=== PATIENT | female | born 1960 | race Caucasian/White ===

== ENCOUNTER 2019-12-10 18:04 | Inpatient (IN) | payer SELFPAY ==
[~2019-12-10] VITALS: Ht 152.4 cm; Wt 56.4 kg
[2019-12-10 19:21] LABS: BASOPHILS % (AUTO) 1.3 % (0.0-2.0); EOSINOPHILS % (AUTO) 0.9 % (1.0-6.0); HEMOGLOBIN 14.4 g/dL (12.0-16.0); LYMPHOCYTES # (AUTO) 1.9 K/uL (1.0-4.8); LYMPHOCYTES % (AUTO) 34.3 % (22.0-44.0); MEAN CORPUSCULAR HEMOGLOBIN 29.7 pg (26.0-34.0); MEAN CORPUSCULAR HGB CONC 32.6 G/dL (31.0-37.0); MEAN CORPUSCULAR VOLUME 91 fL (80-100); MONOCYTES # (AUTO) 0.4 K/uL (0.1-1.0); MONOCYTES % (AUTO) 7.5 % (2.0-9.0); PLATELET COUNT (AUTO) 374 K/uL (150-450); RED BLOOD CELL COUNT(AUTO) 4.83 MIL/uL (4.00-5.20); RED CELL DISTRIBUTION WIDTH 14.1 % (11.5-14.5)
[2019-12-10 19:36] LABS: ANION GAP 13 mmol/L (8-16); CALCIUM, TOTAL 8.7 mg/dL (8.8-10.5); CARBON DIOXIDE 25 mmol/L (22-29); CHLORIDE 110 mmol/L (98-107); CREATININE 0.44 mg/dL (0.60-1.30); GLOMERULAR FILTR. RATE CALC > 60 mL/min (>60); GLUCOSE,RANDOM 85 mg/dL (70-110); POTASSIUM 4.1 mmol/L (3.5-5.1); SODIUM SERUM 148 mmol/L (136-145); UREA NITROGEN, BLOOD 9 mg/dL (7-18)
[2019-12-10 19:42] LABS: ALANINE AMINOTRANSFERASE 21 U/L (12-78); ALBUMIN 3.5 g/dL (3.4-5.0); ALKALINE PHOSPHATASE 102 U/L (46-116); ASPARTATE AMINOTRANSFERASE 14 U/L (15-37); BILIRUBIN,TOTAL 0.2 mg/dL (0.1-1.0); TOTAL PROTEIN, SERUM 7.2 g/dL (6.4-8.2)
[2019-12-10] MEDS ORDERED: ZOLPIDEM TARTRATE 10 MG TABLET PO PRN (23:30)
[2019-12-10] MEDS ORDERED: HALOPERIDOL 5 MG TABLET PO PRN (23:30)
[2019-12-11 01:45] VITALS: BP 135/70
[2019-12-11] MEDS: LORazepam 2 MG TABLET PO PRN (02:07)
[2019-12-11 08:21] VITALS: BP 117/78
[2019-12-11 09:01] LABS: CHOL/HDL RATIO 1.9 (3.9-5.7)
[2019-12-11] MEDS ORDERED: LOPERAMIDE HCL 2 MG CAPSULE PO PRN (10:45)
[2019-12-11] MEDS ORDERED: DOCUSATE SODIUM 100 MG CAPSULE PO PRN (10:45)
[2019-12-11] MEDS ORDERED: CloNIDine HCL 0.1 MG TABLET PO PRN (10:45)
[2019-12-11] MEDS ORDERED: MAGNESIUM HYDROXIDE SUSPENSION 30 ML UDCUP PO PRN (10:45)
[2019-12-11] MEDS ORDERED: GuaiFENesin/D-METHORPHAN [SUGAR-FREE] 200-20MG/10 ML SYRUP UDCUP PO PRN (10:45)
[2019-12-11] MEDS ORDERED: MAG HYDROX/AL HYDROX/SIMETH ES 30 ML SUSPENSION UDCUP PO PRN (10:45)
[2019-12-11] MEDS ORDERED: ONDANSETRON HCL 4 MG TABLET PO PRN (10:45)
[2019-12-11] MEDS ORDERED: ACETAMINOPHEN 325 MG TABLET PO PRN (10:45)
[2019-12-11] MEDS ORDERED: PETROLATUM,WHITE 28 GM JELLY TP PRN (10:45)
[2019-12-11] MEDS ORDERED: ALBUTEROL SULFATE HFA 90 MCG/PUFF 8 GM INHALER IH PRN (10:45)
[2019-12-11 16:24] VITALS: BP 109/63
[2019-12-11] MEDS: OLANZapine 5 MG TABLET PO SCH (21:10)
[2019-12-12 06:52] VITALS: BP 110/65
[2019-12-12 08:29] VITALS: BP 121/72
[2019-12-12] MEDS: OLANZapine 5 MG TABLET PO SCH (08:56)
[2019-12-12 16:30] VITALS: BP 115/60
[2019-12-12] MEDS: LORazepam 2 MG TABLET PO PRN (16:53)
[2019-12-12] MEDS: HALOPERIDOL 10 MG TABLET PO SCH (20:58)
[2019-12-13 02:02] VITALS: BP 111/63
[2019-12-13 08:14] VITALS: BP 120/72
[2019-12-13 08:26] LABS: FREE T4 (FREE THYROXINE) 0.95 ng/dL (0.76-1.46); THYROID STIMULATING HORMONE 1.16 uIU/mL (0.36-3.74)
[2019-12-13] MEDS: DULoxetine HCL 60 MG CAPSULE PO SCH (08:36)
[2019-12-13] MEDS: ARIPiprazole 10 MG TABLET PO SCH (08:36)
[2019-12-13] MEDS: LORazepam 2 MG TABLET PO PRN (13:46)
[2019-12-13 16:00] VITALS: BP 126/85
[2019-12-13 16:30] VITALS: BP 121/76
[2019-12-13] MEDS: HALOPERIDOL 10 MG TABLET PO SCH (20:23)
[2019-12-14 04:03] VITALS: BP 119/64
[2019-12-14] MEDS: FOLIC ACID 1 MG TABLET PO SCH (08:51)
[2019-12-14] MEDS: DULoxetine HCL 60 MG CAPSULE PO SCH (08:51)
[2019-12-14] MEDS: THIAMINE 100 MG TABLET PO SCH (08:52)
[2019-12-14] MEDS: ARIPiprazole 10 MG TABLET PO SCH (08:52)
[2019-12-14] MEDS: MULTIVITAMINS WITH MINERALS, THERAPEUTIC TABLET PO SCH (08:52)
[2019-12-14 12:37] VITALS: BP 113/67
[2019-12-14] MEDS: LORazepam 2 MG TABLET PO PRN (13:17)
[2019-12-14 16:34] VITALS: BP 124/63
[2019-12-14] MEDS: HALOPERIDOL 10 MG TABLET PO SCH (20:13)
[2019-12-15] MEDS: IBUPROFEN 400 MG TABLET PO PRN (00:28)
[2019-12-15 04:21] VITALS: BP 125/87
[2019-12-15] MEDS: ARIPiprazole 10 MG TABLET PO SCH (08:28)
[2019-12-15] MEDS: THIAMINE 100 MG TABLET PO SCH (08:28)
[2019-12-15] MEDS: DULoxetine HCL 60 MG CAPSULE PO SCH (08:28)
[2019-12-15] MEDS: FOLIC ACID 1 MG TABLET PO SCH (08:28)
[2019-12-15] MEDS: MULTIVITAMINS WITH MINERALS, THERAPEUTIC TABLET PO SCH (08:28)
[2019-12-15 09:21] VITALS: BP 115/67
[2019-12-15 16:21] VITALS: BP 134/86
[2019-12-15] MEDS: LORazepam 2 MG TABLET PO PRN (17:58)
[2019-12-15] MEDS: NICOTINE 14 MG/24 HOUR PATCH TD PRN (17:58)
[2019-12-15] MEDS: HALOPERIDOL 10 MG TABLET PO SCH (20:26)
[2019-12-16 06:27] VITALS: BP 138/78
[2019-12-16] MEDS: ARIPiprazole 10 MG TABLET PO SCH (08:31)
[2019-12-16] MEDS: FOLIC ACID 1 MG TABLET PO SCH (08:32)
[2019-12-16] MEDS: DULoxetine HCL 60 MG CAPSULE PO SCH (08:32)
[2019-12-16] MEDS: THIAMINE 100 MG TABLET PO SCH (08:32)
[2019-12-16] MEDS: MULTIVITAMINS WITH MINERALS, THERAPEUTIC TABLET PO SCH (08:32)
[2019-12-16] MEDS: LORazepam 2 MG TABLET PO PRN (08:36)
[2019-12-16 08:48] VITALS: BP 111/69
[2019-12-16] MEDS ORDERED: DULO60CA44 PO (09:31)
[2019-12-16] MEDS ORDERED: HALO10 PO (09:31)
[2019-12-16] MEDS ORDERED: ARIP10TA8 PO (09:31)
[2019-12-16 16:16] VITALS: BP 100/67
[2019-12-16] MEDS: HALOPERIDOL 10 MG TABLET PO SCH (21:18)
[2019-12-17 04:01] VITALS: BP 102/68
[2019-12-17] MEDS: MULTIVITAMINS WITH MINERALS, THERAPEUTIC TABLET PO SCH (08:53)
[2019-12-17] MEDS: FOLIC ACID 1 MG TABLET PO SCH (08:53)
[2019-12-17] MEDS: DULoxetine HCL 60 MG CAPSULE PO SCH (08:53)
[2019-12-17] MEDS: THIAMINE 100 MG TABLET PO SCH (08:53)
[2019-12-17] MEDS: ARIPiprazole 10 MG TABLET PO SCH (08:53)
[2019-12-17] MEDS: LORazepam 2 MG TABLET PO PRN (08:59)
[2019-12-17 09:17] VITALS: BP 113/74
[2019-12-17 14:32] VITALS: BP 111/72
[2019-12-17] MEDS: IBUPROFEN 400 MG TABLET PO PRN (14:32)
[2019-12-17 16:39] VITALS: BP 113/74
[2019-12-17] MEDS: HALOPERIDOL 10 MG TABLET PO SCH (21:08)
[2019-12-18 00:47] VITALS: BP 120/85
[2019-12-18] MEDS: ARIPiprazole 10 MG TABLET PO SCH (08:41)
[2019-12-18] MEDS: DULoxetine HCL 60 MG CAPSULE PO SCH (08:41)
[2019-12-18] MEDS: FOLIC ACID 1 MG TABLET PO SCH (08:41)
[2019-12-18] MEDS: THIAMINE 100 MG TABLET PO SCH (08:41)
[2019-12-18] MEDS: MULTIVITAMINS WITH MINERALS, THERAPEUTIC TABLET PO SCH (08:41)
[2019-12-18] MEDS: PNEUMOCOCCAL VACCINE POLYVALENT 0.5 ML VIAL [PPSV23] IM ONE ×2 (08:44→12:45)
[2019-12-18] MEDS: LORazepam 2 MG TABLET PO PRN (09:18)
[2019-12-18] MEDS: NICOTINE 14 MG/24 HOUR PATCH TD PRN (09:18)
[2019-12-18 09:34] VITALS: BP 115/76
== END 2019-12-18 13:30 | disposition home or self-care (01) | DRG 885 ==
LOC: EMS 18:04 → B3A 23:27 → B2S 12-13 16:20
DX: F20.0 Paranoid schizophrenia (principal); E87.0 Hyperosmolality and hypernatremia; J44.9 Chronic obstructive pulmonary disease, unspecified; M06.9 Rheumatoid arthritis, unspecified; R45.850 Homicidal ideations; F17.210 Nicotine dependence, cigarettes, uncomplicated; Z79.899 Other long term (current) drug therapy; Z23 Encounter for immunization; Z88.1 Allergy status to other antibiotic agents; Z88.2 Allergy status to sulfonamides; Z88.8 Allergy status to other drugs, medicaments and biological substances
CPT/HCPCS: 84439; 84443; 90732; G0480